=== PATIENT | male | born 1955 | race Caucasian/White ===

== ENCOUNTER 2017-03-09 16:21 | Inpatient (IN) | payer OTHER ==
[~2017-03-09] VITALS: Ht 182.9 cm; Wt 159.8 kg
[~2017-03-09 16:21] MED LIST: ADVAIR 250/501 DISK IH; ASPIR-LOW81 MG PO; ATACAND32 MG PO; ATACAND8 MG PO; AUGMENTIN875 MG PO; BENADRYL25 MG PO; CARDIZEM CD,CA180 MG PO; DILTIAZEM 24HR240 MG PO; FISH OIL 1,0001 EAC7 PO; FLOVENT 11120 INHALA IH; FUROSEMIDE40 MG PO; JANUVIA100 MG PO; KLOR-CON M2020 MEQ PO; LASIX40 MG PO; LIDODERM 5% P1 PATCH TD; LIPITOR20 MG PO; LOPRESSOR25 MG PO; METFORMIN HCL1000 MG PO; METHADONE10 MG PO; PROAIR HFA8.5 GM IH; STARLIX120 MG PO; XARELTO20 MG PO; ZANTAC150 MG PO; ZOCOR20 MG PO
[2017-03-09] MEDS ORDERED: CORTIZONE-10 PL57 GM TP (20:17)
[2017-03-09] MEDS ORDERED: TESSALON200 MG PO (20:19)
[2017-03-09] MEDS ORDERED: LIDOCAINE700 MG TD (20:19)
[2017-03-09] MEDS ORDERED: METHADONE10 MG PO (20:19)
[2017-03-09] MEDS ORDERED: BENADRYL50 MG PO (20:20)
[2017-03-09] MEDS ORDERED: FLONASE16 G1 BOTH NARES (20:20)
[2017-03-09] MEDS ORDERED: LOPRESSOR25 MG PO (20:21)
[2017-03-09] MEDS ORDERED: LIPITOR20 MG PO (20:21)
[2017-03-09] MEDS ORDERED: CARDIZEM CD,CA180 MG PO (20:22)
[2017-03-09] MEDS ORDERED: ZANTAC150 MG PO (20:22)
[2017-03-09] MEDS ORDERED: ATACAND8 MG PO (20:23)
[2017-03-09] MEDS ORDERED: PROAIR HFA8.5 GM IH (20:23)
[2017-03-09] MEDS ORDERED: ZANAFLEX4 MG PO (20:23)
[2017-03-09] MEDS ORDERED: LASIX40 MG PO (20:24)
[2017-03-09] MEDS ORDERED: FLOVENT 11120 INHALA IH (20:24)
[2017-03-09] MEDS ORDERED: FLAGYL500 MG PO (20:25)
[2017-03-09] MEDS ORDERED: NEURONTIN300 MG PO (20:26)
[2017-03-09] MEDS ORDERED: JANUVIA100 MG PO (20:27)
[2017-03-09] MEDS ORDERED: ATARAX,VISTARIL25 MG PO (20:27)
[2017-03-09 23:07] VITALS: BP 139/72
[2017-03-10 03:22] VITALS: BP 143/70
[2017-03-10 07:14] LABS: HEMATOCRIT 36.1 % (38.0-50.0); MCHC 34.9 G/DL (30.0-36.0); RBC DIS.WIDTH-CV 13.5 % (11.8-14.6); RBC DIS.WIDTH-SD 41.8 % (39-53)
[2017-03-10 07:15] LABS: EOSINOPHIL (%) 2.6 % (0-5); EOSINOPHIL COUNT 0.2 K/uL (0-0.3); IMMATURE GRANULOCYTE (%) 1.3 % (0.0-0.7); IMMATURE GRANULOCYTE COUNT 0.1 K/uL; INSTRUMENT ABS NEUTROPHIL CT 5.9 K/uL; LYMPHOCYTE COUNT 1.8 K/uL (1.0-2.8); MONOCYTE COUNT 1.2 K/uL (0-0.8); NEUTROPHIL COUNT 5.9 K/uL (1.8-6.4)
[2017-03-10 07:16] LABS: WHITE BLOOD COUNT 9.3 K/uL (4.1-10.2)
[2017-03-10 07:31] VITALS: BP 107/59
[2017-03-10 07:33] LABS: ANION GAP 8 MEQ/L (2-14); CHLORIDE 100 MEQ/L (99-109); GFR ESTIMATE (CALCULATED) > 59 mL/min/; GLUCOSE 207 mg/dL (70-99); POTASSIUM 4.2 MEQ/L (3.7-5.4); SAMPLE HEMOLYSIS CHECK 0; SAMPLE ICTERIC CHECK 0; SAMPLE LIPEMIA CHECK 0; SODIUM 134 MEQ/L (136-147); UREA NITROGEN (BUN) 18 mg/dL (9-23)
[2017-03-10 07:40] LABS: MEAN PLAT.VOLUME 9.2 uM^3 (9.0-12.4); PLAT.SUFFICIENCY ADEQUATE
[2017-03-10 07:44] LABS: PLATELET COUNT 311 K/uL (156-360)
[2017-03-10 08:03] LABS: POINT-OF-CARE USER ID 612031306
[2017-03-10 15:48] VITALS: BP 122/50
[2017-03-10 19:30] VITALS: BP 133/56
[2017-03-10 22:06] LABS: POINT-OF-CARE METER ID UU14162508
[2017-03-10 23:03] VITALS: BP 138/55
[2017-03-11 07:42] LABS: EOSINOPHIL (%) 2.6 % (0-5); EOSINOPHIL COUNT 0.3 K/uL (0-0.3); HEMATOCRIT 35.8 % (38.0-50.0); IMMATURE GRANULOCYTE COUNT 0.1 K/uL; INSTRUMENT ABS NEUTROPHIL CT 6.7 K/uL; LYMPHOCYTE COUNT 1.7 K/uL (1.0-2.8); MCH 29.6 PG (29.0-34.0); MCHC 34.1 G/DL (30.0-36.0); MCV 86.9 FL (86-99); MEAN PLAT.VOLUME 9.3 uM^3 (9.0-12.4); MONOCYTE (%) 10.4 % (3-12); NEUTROPHIL (%) 68.2 % (45-76); NEUTROPHIL COUNT 6.7 K/uL (1.8-6.4); PLATELET COUNT 297 K/uL (156-360); RBC DIS.WIDTH-CV 13.8 % (11.8-14.6); RED BLOOD COUNT 4.12 M/uL (4.00-5.50); WHITE BLOOD COUNT 9.9 K/uL (4.1-10.2)
[2017-03-11 07:58] LABS: ANION GAP 7 MEQ/L (2-14); CHLORIDE 101 MEQ/L (99-109); GFR ESTIMATE (CALCULATED) > 59 mL/min/; GLUCOSE 151 mg/dL (70-99); POTASSIUM 4.8 MEQ/L (3.7-5.4); SAMPLE HEMOLYSIS CHECK 0; SAMPLE ICTERIC CHECK 0; SAMPLE LIPEMIA CHECK 0; SODIUM 134 MEQ/L (136-147); UREA NITROGEN (BUN) 13 mg/dL (9-23)
[2017-03-11 08:57] VITALS: BP 117/67
[2017-03-11 15:15] VITALS: BP 107/58
[2017-03-11 17:02] VITALS: BP 107/58
== END 2017-03-11 18:06 | disposition home health service (06) | DRG 603 ==
LOC: EME 16:21 → EDOF 22:07 → 2EAST 22:07
PROVIDERS: Hospitalist; Internal Medicine
DX: L03.115 Cellulitis of right lower limb (principal); L03.116 Cellulitis of left lower limb; I83.028 Varicose veins of left lower extremity with ulcer other part of lower leg; G89.29 Other chronic pain; I89.0 Lymphedema, not elsewhere classified; I10 Essential (primary) hypertension; E78.5 Hyperlipidemia, unspecified; I25.10 Atherosclerotic heart disease of native coronary artery without angina pectoris; Z95.5 Presence of coronary angioplasty implant and graft; I48.0 Paroxysmal atrial fibrillation; K21.9 Gastro-esophageal reflux disease without esophagitis; G47.33 Obstructive sleep apnea (adult) (pediatric); G25.81 Restless legs syndrome; B96.5 Pseudomonas (aeruginosa) (mallei) (pseudomallei) as the cause of diseases classified elsewhere; B96.89 Other specified bacterial agents as the cause of diseases classified elsewhere; Z79.84 Long term (current) use of oral hypoglycemic drugs; I25.2 Old myocardial infarction; E66.01 Morbid (severe) obesity due to excess calories; Z68.42 Body mass index [BMI] 45.0-49.9, adult; R16.2 Hepatomegaly with splenomegaly, not elsewhere classified; Z87.891 Personal history of nicotine dependence; Z16.23 Resistance to quinolones and fluoroquinolones; M79.662 Pain in left lower leg; Z79.891 Long term (current) use of opiate analgesic; Z89.432 Acquired absence of left foot; Z89.431 Acquired absence of right foot; L97.829 Non-pressure chronic ulcer of other part of left lower leg with unspecified severity; E11.69 Type 2 diabetes mellitus with other specified complication
CPT/HCPCS: 80048; 82948; 85025; 87040; 94640; 94640 76; 99202; 99281; 99285; A6260; J0692; J1644; J1815; J2270; J7050; S0030